=== PATIENT | male | born 1950 | race Caucasian/White ===

== ENCOUNTER → 2018-03-03 | Outpatient (CLI) | payer MEDICARE ==
[2014-09-02 07:15] VITALS: BP 136/74
[~2018-03-03] MED LIST: ASPI-630 PO; ATOR20TA PO; LEVO50TA5 PO; LISI-334 PO; METO-239 PO
--- NOTE | 2018-03-03 17:09 | RAD ---
THYROID ULTRASOUND History: Enlarged thyroid seen on carotid studies. Comparison: None. Technique: Multiple grayscale and color Doppler images of the thyroid gland were obtained. Findings: Measurements in length, AP (height), and transverse (width), respectively, unless otherwise stated. Isthmus measures 2 mm AP. There is a right of midline hypoechoic isthmus solid nodule measuring 6 mm. The right thyroid lobe measures 4.7 x 2 x 2 cm. The left thyroid lobe measures 3 x 1.1 x 1 cm. The thyroid gland is heterogeneous. There is a coarse calcification in the upper right thyroid lobe with posterior acoustic shadowing. There is a subtle solid nodule versus pseudonodule in the inferior right thyroid lobe measuring approximately 18 x 14 x 15 mm. Nodule is isoechoic. Nodule is not definitely taller than wide. Margins cannot be determined. No echogenic foci. Therefore TR3. Consider ultrasound follow-up in 12 months. ACR Thyroid Imaging, Reporting And Data System (TI-RADS): White Paper Of The ACR TI-RADS Committee. Journal of the [employer], volume 14, issue 5, pages 587-595 (January 2017). IMPRESSION: Heterogeneous thyroid gland. Electronically signed by: Tavo Harden MD (03/03/2018 5:05 PM) [id number]
== END | disposition home or self-care (01) ==
LOC: US 14:48
PROVIDERS: ATTEND Physician Assistant
DX: E04.1 Nontoxic single thyroid nodule (principal)
CPT/HCPCS: 76536

== ENCOUNTER → 2020-09-24 | Outpatient (CLI) | payer MEDICARE ==
[2014-09-02 07:15] VITALS: BP 136/74
[~2020-09-24] MED LIST changes: -LISI-334 PO; +LISI20TA18 PO
--- NOTE | 2020-09-24 10:23 | RAD ---
MR#: [id number] Date of Study: 09/24/2020 Ordering Physician: LUI BROOKS, Referring Physician: LUI BROOKS, Tech: APPROVED REPORT Patient Location: OUT-PATIENT Laterality:Bilateral Indications Bruit Grayscale images demonstrate mild to moderate diffuse atherosclerotic plaque without any focal critic al stenosis identified. The bilateral common carotid, external and internal carotid vessels demonstrate mild intimal hyperpla adelaida with overall 0 to less than 50% stenosis based on velocity criteria. The bilateral vertebral velocities demonstrate antegrade flow with normal velocities. Normal bilateral ICA to CCA ratios. Doppler Spectral Velocity Analysis Right Left pCCA 83/19 cm/spCCA 91/15 cm/s mCCA 77/13 cm/smCCA 77/17 cm/s dCCA 57/14 cm/sdCCA 50/14 cm/s ECA 94/ cm/sECA 67/ cm/s pICA 59/12 cm/spICA 60/20 cm/s Cindy 55/16 cm/smICA 75/25 cm/s dICA 65/21 cm/sdICA 83/29 cm/s ICA/CCA 0.78ICA/CCA 0.91 Critical Notification Critical Value: No <Conclusion> 1. No significant carotid occlusive disease bilaterally Signed by : Dav Nevarez, Electronically Approved : 09/24/2020 10:23:05
--- NOTE | 2020-09-24 18:42 | CARD ---
MR#: [id number] Date of Study: 09/24/2020 Ordering Physician: LUI BROOKS, Referring Physician: LUI BROOKS, Tech: Sweetie Cloud APPROVED REPORT EXAM: Two-dimensional and M-mode echocardiogram with Doppler and color Doppler. Other Information Quality : AverageHR: 52bpm INDICATION Cardiac Disease: CAD Surgery/Intervention CABG: Date: 2013 RISK FACTORS Hypertension Hyperlipidemia 2D DIMENSIONS RVDd3.4 (2.9-3.5cm)Left Atrium(2D)3.4 (1.6-4.0cm) IVSd1.2 (0.7-1.1cm)Aortic Root(2D)3.7 (2.0-3.7cm) LVDd5.0 (3.9-5.9cm)LVOT Diameter2.1 (1.8-2.4cm) PWd1.1 (0.7-1.1cm)LVDs3.2 (2.5-4.0cm) FS (%) 34.7 %SV73.6 ml Aortic Valve AoV Peak Jovanny.130.0cm/sAoV VTI31.7cm AO Peak GR.6.8mmHgLVOT Peak Jovanny.72.1cm/s LVOT VTI 18.43cmAO Mean GR.3mmHg SHAYY (VMAX)1.75ui2PKR (VTI)2.05cm2 AI P 1/2 Falm167lb Mitral Valve MV E Jysqjylm28.2cm/sMV DECEL [id number] MV A Jdrowhkg07.2cm/sE/A Ratio2.3 Pulmonary Valve PV Peak Qqjzhtgv98.3cm/sPV Peak Grad.3mmHg Tricuspid Valve TR P. Qmvimeoa798tm/sRAP HCKDMIPH7lhFw TR Peak Gr.27mfOkPRMF02upBp Pulmonary Vein S1 Czpqfqec30.0cm/sD2 Uyssrzfn07.1cm/s LEFT VENTRICLE The left ventricle is normal size. There is mild concentric left ventricular hypertrophy. The left ve ntricular systolic function is normal and the ejection fraction is within normal range. The Ejection Fraction is 50-55%. There is normal LV segmental wall motion. Transmitral Doppler flow pattern is Gra de II-pseudonormal filling dynamics. RIGHT VENTRICLE The right ventricle is normal size. There is normal right ventricular wall thickness. The right ventr icular systolic function is normal. ATRIA The left atrium size is normal. The right atrium size is normal. The interatrial septum is intact wit h no evidence for an atrial septal defect or patent foramen ovale as noted on 2-D or Doppler imaging. AORTIC VALVE The aortic valve is normal in structure and function. Doppler and Color Flow revealed trace aortic re gurgitation. Calculated aortic valve area is 2.5 cm2 with maximum pressure gradient of 4 mmHg and josefina n pressure gradient of 2 mmHg. There is no significant aortic valvular stenosis. MITRAL VALVE The mitral valve is normal in structure and function. There is no evidence of mitral valve prolapse. There is no mitral valve stenosis. Doppler and Color-flow revealed trace mitral regurgitation. TRICUSPID VALVE The tricuspid valve is normal in structure and function. Doppler and Color Flow revealed mild tricusp id regurgitation with an estimated PAP of 43 mmHg. There is no tricuspid valve stenosis. PULMONIC VALVE The pulmonary valve is normal in structure and function. Doppler and Color Flow revealed trace pulmon ic valvular regurgitation. GREAT VESSELS The aortic root is normal in size. The ascending aorta is normal in size. The IVC is normal in size a nd collapses >50% with inspiration. PERICARDIAL EFFUSION There is no evidence of significant pericardial effusion. Critical Notification Critical Value: No <Conclusion> The left ventricle is normal size. The left ventricular systolic function is normal and the ejection fraction is within normal range. The Ejection Fraction is 50-55%. There is mild concentric left ventricular hypertrophy. Doppler and Color Flow revealed trace aortic regurgitation. There is no significant aortic valvular stenosis. Doppler and Color-flow revealed trace mitral regurgitation. Doppler and Color Flow revealed mild tricuspid regurgitation with an estimated PAP of 43 mmHg. Signed by : William Owens MD Electronically Approved : 09/24/2020 18:41:25
== END ==
LOC: ECHO 07:47
PROVIDERS: ATTEND Internal Medicine Cardiovascular Disease
DX: I36.1 Nonrheumatic tricuspid (valve) insufficiency (principal); I11.9 Hypertensive heart disease without heart failure; I25.10 Atherosclerotic heart disease of native coronary artery without angina pectoris; R09.89 Other specified symptoms and signs involving the circulatory and respiratory systems
CPT/HCPCS: 93306; 93880

== ENCOUNTER → 2021-04-01 | Outpatient (CLI) | payer MEDICARE ==
[2014-09-02 07:15] VITALS: BP 136/74
[~2021-04-01] MED LIST changes: +REGADENOSON 0.4 MG/5 ML DISP.SYRIN. IV ONE
--- NOTE | 2021-04-01 15:08 | RAD ---
MR#: [id number] Date of Study: 04/01/2021 Ordering Physician: LUI TREJO Referring Physician: OLLIE HO Tech: RT Olivia (R) (N) APPROVED REPORT Test Type: Pharmacological Stress Nurse/Tech: Marla Iqbal Test Indications: CAD Cardiac History: Triple bypass 6 yrs ago Medications: See EHR Resting Heart Rate: 46 bpm Resting Blood Pressure: 162/56mmHg Pretest Chest Pain: None Pharm. Details Pharmacologic stress testing was performed using 0.4mg per 5ml of regadenoson given intravenously ove r 7-10 seconds. Stress Symptoms Dyspnea POST EXERCISE Reason for Termination: Infusion complete Max HR: 94 bpm Max Blood Pressure: 162/56mmHg Blood Pressure response to exercise: Normal blood pressure response during stress. Heart Rate response to exercise: Increased Chest Pain: No. Arrhythmia: No. ST Change: No. INTERPRETATION Stress EKG Conclusion: Baseline EKG showed sinus rhythm. No ischemic changes at peak stress. No arr hythmias. Imaging Protocol IMAGE PROTOCOL: Rest Tc-99m/stress Tc-99m 1 day Rest: Stress: Viability: Radiopharm.Tc99m WweuumxdpOb68z Sestamibi Miwj46jOu 33mCi Duration 15min. 15min. Img Date 04/01/2021 04/01/2021 Inj-Img Hpck38wlq. 45min. Rest Admin Site:IV - Right AntecubitalAdministrator: RT Olivia (R)(N) Stress Admin Site: IV - Right AntecubitalAdministrator: RT Olivia (R)(N) STRESS DATA End Diast. Vol.104.0mlAv. Heart Rate48.0bpm End Syst. Vol.26.0mlCO Index BSA0.0L/min Myocardial Qwge856.0gEject. Ptimukbc94.0% Stress Rates Pk. Fill Rate2.53EDV/secLVtime Pk. Fill 226.88msec Pk. Empty Rate2.75ESV/secLVtime Pk. Hgfjz830.46msec 09/22 Pk. Fill1.02EDV/sec Stress Scores Regional WT0.00Summed WT0.00 Regional WM0.00Summed WM1.00 Study quality was good. Left Ventricular size was Normal at Rest and Stress. Lung uptake was . Left Ventricular ejection fraction is 71%. The rest and stress images show normal perfusion, normal contraction and thickening. LV Perf. Quant 17 Seg. SSS2.00 17 Seg. SRS2.00 17 Seg. SDS0.00 Stress Defect Extent (% LAD)0.00Rest Defect Extent (% LAD)0.00Rev. Defect Extent (% LAD)0.00 Stress Defect Extent (% LCX) 27.50Rest Defect Extent (% LCX)33.80Rev. Defect Extent (% LCX)1.30 Stress Defect Extent (% RCA)0.00Rest Defect Extent (% RCA)0.00Rev. Defect Extent (% RCA)0.00 Stress Defect Extent (% JAD)4.80Rest Defect Extent (% JAD)5.90Rev. Defect Extent (% JAD)0.20 Conclusion 1. Regadenoson cardioisotope stress test did not show any evidence of ischemia or infarct. 2. Normal left ventricular systolic function with ejection fraction calculated at 71%. 3. Low risk for cardiac events. Signed by : Lui Trejo, Electronically Approved : 04/01/2021 15:08:28
== END ==
LOC: NM 08:12
PROVIDERS: ATTEND Internal Medicine Cardiovascular Disease
DX: I25.10 Atherosclerotic heart disease of native coronary artery without angina pectoris (principal)
CPT/HCPCS: 78452; 93017; A9500; J2785